=== PATIENT | male | born 1960 | race Caucasian/White ===

== ENCOUNTER → 2017-05-02 | Outpatient (CLI) | payer OTHER ==
[~2017-05-02] MED LIST: AFEDITAB CR60 M1 PO; COREG25 MG PO; FENOFIBRATE145 M1 PO; FUROSEMIDE 20 M20 M1 PO; HYDROCODONE-AP1 EAC6 PO; LANTUS100 UNIT/M SUBQ; LIPITOR 20 MG T20 M1 PO; NOVOLOG100 UNIT/1 SUBQ
[2017-05-03 07:36] LABS: HEPATITIS B SURFACE AG Negative (Negative)
== END ==
LOC: M.LAB 15:07
PROVIDERS: Internal Medicine Nephrology
DX: N18.5 Chronic kidney disease, stage 5 (principal)

== ENCOUNTER → 2019-03-14 | Outpatient (CLI) | payer OTHER ==
[2019-03-14 10:40] LABS: POTASSIUM 4.7 mmol/L (3.5-5.1)
== END ==
LOC: M.LAB 04:54
PROVIDERS: Anesthesiology
DX: E87.6 Hypokalemia (principal); E11.9 Type 2 diabetes mellitus without complications